=== PATIENT | male | born 1980 | race Caucasian/White ===

== ENCOUNTER 2017-03-20 10:58 | Emergency (ER) | payer MEDICAID, OTHER ==
[~2017-03-20] VITALS: Ht 172.7 cm; Wt 72.6 kg
[2017-03-20 11:17] VITALS: BP 161/108
[2017-03-20 11:45] VITALS: BP 161/108
--- NOTE | 2017-03-20 13:30 | Emergency Room Report ---
History of Present Illness General Chief Complaint: Lower Extremity Injury Source: Patient Present Illness Allergies: Coded Allergies: No Known Allergies (Unverified , 03/20/17) Nursing Documentation-[facility] Past Medical History: No History, Except For Hx Hypertension: Yes Physical Exam Vital Signs Date Time Temp Pulse Resp B/P Pulse Ox O2 Delivery O2 Flow Rate FiO2 03/20/17 11:17 98.2 91 18 161/108 98 Room Air Medical Decision Making Last Vital Signs Date Time Temp Pulse Resp B/P Pulse Ox O2 Delivery O2 Flow Rate FiO2 03/20/17 11:45 98.2 18 161/108 98 Room Air 03/20/17 11:17 91 Reevaluation Impression Patient eloped before I could see him I did not see, talk to, or evaluate patient Disposition: ELOPED Referrals: NON PHYSICIAN (PCP) CRISTIAN BARAJAS M.D. Mar 20, 2017 13:30
[2017-03-20] MEDS ORDERED: CEPHALEXIN500 MG ORAL (13:53)
[2017-03-20] MEDS ORDERED: IBUPROFEN600 MG ORAL (13:53)
== END 2017-03-20 11:45 | disposition left against medical advice (07) ==
LOC: EMR 11:45
DX: R52 Pain, unspecified (principal); Z53.21 Procedure and treatment not carried out due to patient leaving prior to being seen by health care provider; I10 Essential (primary) hypertension
CPT/HCPCS: 99284

== ENCOUNTER 2017-03-20 13:17 | Emergency (ER) | payer MEDICAID ==
[~2017-03-20] VITALS: Ht 172.7 cm; Wt 72.6 kg
[2017-03-20 13:31] VITALS: BP 151/101
--- NOTE | 2017-03-20 13:52 | Emergency Room Report ---
History of Present Illness General Chief Complaint: Lower Extremity Injury Source: Patient Present Illness HPI 36 YO Male presents to the ED c/o pain, swelling, and erythema of the dorsum of the right foot x 3 days. pt. denies itching. reports burning sensation 5/10 in severity has been progressive. states [place] the [place] prior to onset and believes he may have been bit by something. denies fevers or chills. Denies trauma or fall. pain is localized to area of erythema. Denies numbness tingling or loss of sensation or gross motor movements of the extremities, incontinence of bowel or bladder. UTD with vaccinations. Denies CP , Palpitations, LOC, AMS, dizziness, Changes in Vision, Sensation, paresthesias , or a sudden severe headache. Allergies: Coded Allergies: No Known Allergies (Unverified , 03/20/17) Patient History Past Medical History: see triage record Past Surgical History: none Pertinent Family History: none Immunizations: UTD Reviewed Nursing Documentation: PMH: Agreed, PSxH: Agreed Nursing Documentation-PMH Past Medical History: No History, Except For Hx Hypertension: Yes Review of Systems All Other Systems: negative except mentioned in HPI Physical Exam Vital Signs Date Time Temp Pulse Resp B/P Pulse Ox O2 Delivery O2 Flow Rate FiO2 03/20/17 13:31 98.6 95 18 151/101 98 Room Air Sp02 EP Interpretation: reviewed, normal General Appearance: no apparent distress, alert, GCS 15, non-toxic Head: normocephalic, atraumatic Eyes: bilateral eye normal inspection, bilateral eye PERRL ENT: hearing grossly normal, normal voice Neck: full range of motion Respiratory: lungs clear, normal breath sounds, speaking full sentences Cardiovascular #1: regular rate, rhythm Cardiovascular #2: 2+ dorsalis pedis (R), 2+ dorsalis pedis (L) Musculoskeletal: back normal, gait/station normal, normal range of motion, inflammation - small localized area of erythema, and increased temperature to palpation of the dorsum of the right foot. no obvious open lesions. , tender - TTP of the soft tissue superficially to the right lateral dorsum of the right foot. no bony ttp, no bruises, no obvious deformity Neurologic: alert, oriented x3, responsive, motor strength/tone normal, sensory intact, speech normal Psychiatric: judgement/insight normal, memory normal, mood/affect normal Skin: warm/dry, well hydrated, rash - small localized area of erythema, and increased temperature to palpation of the dorsum of the right foot. no obvious open lesions., other - pt. is NVI Lymphatic: no adenopathy Medical Decision Making PA Attestation Dr. Becerra is my supervising Physician whom patient management has been discussed with. Diagnostic Impression: Primary Impression: Cellulitis Qualified Codes: L03.115 - Cellulitis of right lower limb ER Course 36 YO Male presents to the ED c/o pain, swelling, and erythema of the dorsum of the right foot x 3 days. pt. denies itching. reports burning sensation 5/10 in severity has been progressive. states he was barefoot at the beach the day prior to onset and believes he may have been bit by something. denies fevers or chills. Denies trauma or fall. pain is localized to area of erythema. Denies numbness tingling or loss of sensation or gross motor movements of the extremities, incontinence of bowel or bladder. UTD with vaccinations. Denies CP , Palpitations, LOC, AMS, dizziness, Changes in Vision, Sensation, paresthesias , or a sudden severe headache. Ddx considered but are not limited to cellulitis, sprain, fracture, d/L, gout Vital signs: are WNL, pt. is afebrile H&PE are most consistent with soft tissue cellulitis. ORDERS: none required at this time, the diagnosis is clinical ED INTERVENTIONS: -IBU PO d/w pt. conservative treatment. with PMD follow up. pt. was given ED return precautions. DISCHARGE: At this time pt. is stable for d/c to home. Will provide printed patient care instructions, and any necessary prescriptions. Care plan and follow up instructions have been discussed with the patient prior to discharge. Last Vital Signs Date Time Temp Pulse Resp B/P Pulse Ox O2 Delivery O2 Flow Rate FiO2 03/20/17 13:31 98.6 95 18 151/101 98 Room Air Disposition: HOME, SELF-CARE Condition: Stable Scripts Ibuprofen* (MOTRIN*) 600 Mg Tablet 600 MG ORAL THREE TIMES A DAY, #30 TAB 0 Refills Prov: Caitlin Pak P.A. 03/20/17 Cephalexin* (KEFLEX*) 500 Mg Capsule 500 MG ORAL EVERY 12 HOURS for 7 Days, #14 CAP 0 Refills Prov: Caitlin Pak 03/20/17 Patient Instructions: Cellulitis, [id number] Additional Instructions: Take medications as directed. Follow up with a Primary Care Provider in 3-5 days, even if your symptoms have resolved. --Please review list of primary care clinics, if you do not already have a primary care provider Return sooner to ED if new symptoms occur, or current symptoms become worse. - Please note that this Emergency Department Report was dictated using [employer]ational therapy technician technology software, occasionally this can lead to erroneous entry secondary to interpretation by the dictation equipment. Caitlin Pak Mar 20, 2017 13:52
[2017-03-20] MEDS ORDERED: IBUPROFEN600 MG ORAL (13:53)
[2017-03-20] MEDS ORDERED: CEPHALEXIN500 MG ORAL (13:53)
== END 2017-03-20 14:00 | disposition home or self-care (01) ==
LOC: EMR 14:00
DX: L03.115 Cellulitis of right lower limb (principal); I10 Essential (primary) hypertension
CPT/HCPCS: 99284